=== PATIENT | male | born 1950 | race Caucasian/White ===

== ENCOUNTER 2016-09-11 15:04 | Emergency (ER) | payer MEDICAID, OTHER ==
[~2016-09-11 15:04] MED LIST: Sodium Chloride 0.9% 1,000 ML BAG ONE
--- NOTE | 2016-09-11 15:55 | RAD ---
LEFT HIP TWO VIEWS 09/11/16 HISTORY: Fall. Left hip injury. FINDINGS: Oblique fracture through the femoral neck is present with overriding of fragments and varus angulati on. Mild osteoarthritic changes are also apparent. IMPRESSION: Left hip fracture. POS: [facility]
--- NOTE | 2016-09-11 16:23 | RAD ---
LEFT KNEE FOUR VIEWS 09/11/16 HISTORY: Fall. Left knee injury. FINDINGS: There is mild joint space narrowing of the medial compartment with mild tricompartmental osteophytos is. No acute fracture or dislocation apparent. No fluid distention of the suprapatellar bursa. IMPRESSION: Mild osteoarthritic changes left knee. No acute osseous abnormalities are demonstrated. POS: [facility]
--- NOTE | 2016-09-11 16:24 | RAD ---
LEFT ANKLE THREE VIEWS 09/11/16 HISTORY: Fall. Left ankle injury. FINDINGS: Ankle mortise is intact. Truncation of the lower lateral margin of the tibia is similar in appearanc e to the prior study. No acute fracture or dislocation are visible. IMPRESSION: No acute osseous abnormalities are demonstrated. POS: [facility]
[2016-09-11] MEDS ORDERED: Ketorolac Tromethamine 30 MG/ML VIAL ONE (16:36)
[2016-09-11] MEDS ORDERED: Ondansetron HCl/PF 4 MG/2 ML Vial ONE (16:36)
[2016-09-11 16:56] LABS: PTT 27.9 SEC (22.9-36.1)
[2016-09-11 17:05] LABS: ALT (SGPT) 9 U/L (8-55); AST (SGOT) 19 U/L (5-34); Albumin 3.4 g/dL (3.4-4.8); Alkaline Phosphatase 130 U/L (40-150); Anion Gap 15 mmol/L (10-20); BUN (Urea Nitrogen) 7 mg/dL (8.4-25.7); Bilirubin, Total 1.5 mg/dL (0.2-1.2); CK (CPK) 304 U/L (30-200); Calc. Creatinine Clearance 0 mL/min (70-130); Calcium 8.5 mg/dL (7.8-10.44); Carbon Dioxide 27 mmol/L (23-31); Chloride 98 mmol/L (98-107); Estimated GFR-MDRD Greater than 90; Globulin 2.9 g/dL (2.4-3.5); Glucose 102 mg/dL (80-115); Potassium 3.7 mmol/L (3.5-5.1); Protein, Total 6.3 g/dL (5.8-8.1); Sodium 136 mmol/L (136-145)
[2016-09-11 17:06] LABS: Hemoglobin 13.3 g/dL (14.0-18.0); Mean Corpuscular HGB CONC 33.6 g/dL (32.0-36.0); Mean Corpuscular Hemoglobin 31.6 pg (27.0-31.0); Mean Corpuscular Volume 94.1 fl (80.0-94.0); Mean Platelet Volume 6.4 fL (7.4-10.4); Platelet Count 261 thou/uL (130-400); RBC Distribution Width 13.8 % (11.5-14.5); White Blood Cell (WBC) Count 13.8 thou/uL (4.8-10.8)
--- NOTE | 2016-09-11 17:06 | RAD ---
PORTABLE AP CHEST X-RAY 09/11/16 HISTORY: Preoperative evaluation. COMPARISON: 07/25/13. There has been interval development of a cavitary lesion seen within the right lung apex with adjace nt linear and parenchymal opacities present. The findings may be related to atypical infections proc ess. Calcified left hilar lymph nodes are seen with calcified granuloma in the left mid lung zone. T he left lung remains clear. The cardiac silhouette and pulmonary vasculature are within normal limit s. Remote right sided rib fractures again seen. IMPRESSION: Interval development of cavitary lesion in the right lung apex with adjacent increased parenchymal o pacity and/or pleural thickening which may be related to infectious process, an atypical infectious process is a possibility. CT scan thorax is suggested for further evaluation. POS: [facility]
[2016-09-11 17:07] LABS: Band 6 % (5-11); Lymphocytes 14 % (21-51); Monocytes 5 % (0-10)
[2016-09-11 17:12] LABS: CKMB 4.5 ng/mL (0-6.6); Troponin I 0.012 ng/mL (< 0.028)
== END 2016-09-11 16:57 | disposition short-term general hospital (02) ==
LOC: MADERS 15:04
DX: S72.002A Fracture of unspecified part of neck of left femur, initial encounter for closed fracture (principal); I10 Essential (primary) hypertension; W19.XXXA Unspecified fall, initial encounter
CPT/HCPCS: 36415; 51702; 71010; 80053; 82550; 82553; 83880; 84484; 85025; 85610; 85730; 93005; 96374; 96375; G0390; J1885; J2270; J2405; J7050

== ENCOUNTER 2017-06-09 14:00 | Outpatient (CLI) | payer MEDICARE, OTHER ==
--- NOTE | 2017-06-09 15:33 | RAD ---
CERVICAL SPINE SERIES THREE VIEWS: 06/09/17 HISTORY: Neck pain. Unable to hold head straight. COMPARISON: 07/25/13 study. FINDINGS: Marked arthritic changes of the spine are seen. there is pronounced disc narrowing at C4-5 and C5-6. Mild disc narrowing at C2-3. Minimal anterolisthesis of C3 on C4 is similar to the previous examinati on. No soft tissue swelling. There is a scoliotic curvature to the neck. The upper curvature in the cervical region is convexed to the right. IMPRESSION: 1. Arthritic changes of the cervical spine, overall stable exam. 2. Parenchymal and pleural scarring in the right upper lobe stable as compared to a chest x-ray of 02/04/17. POS: [facility]
[2017-06-09 22:25] LABS: Folate (Folic Acid) 15.3 ng/mL (7.0-31.4)
== END 2017-06-09 14:01 | disposition home or self-care (01) ==
LOC: MADLABBHPM 14:00
PROVIDERS: ATTEND Family Medicine
DX: M54.2 Cervicalgia (principal); D50.9 Iron deficiency anemia, unspecified; E53.8 Deficiency of other specified B group vitamins; J98.4 Other disorders of lung; M46.92 Unspecified inflammatory spondylopathy, cervical region
CPT/HCPCS: 36415; 72040; 82607; 82746

== ENCOUNTER 2018-03-22 13:46 | Emergency (ER) | payer MEDICARE, MEDICAID ==
[2018-03-22 14:54] LABS: #Basophils 0.2 thou/uL (0.0-0.2); #Eosinphils 0.4 thou/uL (0.0-0.7); #Lymphocytes 4.1 thou/uL (1.20-3.40); #Monocytes 0.6 thou/uL (0.11-0.59); #Neutrophils 3.9 thou/uL (1.40-6.50); %Basophils 1.7 % (0.0-1.0); %Eosinophils 4.2 % (0.0-10.0); %Lymphocytes 44.8 % (21.0-51.0); %Monocytes 6.9 % (0.0-10.0); %Neutrophils 42.4 % (42.0-75.0); Hemoglobin 13.7 g/dL (14.0-18.0); Mean Corpuscular HGB CONC 31.9 g/dL (32.0-36.0); Mean Corpuscular Volume 94.2 fL (78.0-98.0); Platelet Count 324 thou/uL (130-400); RBC Distribution Width 12.8 % (11.5-14.5); Red Blood Cell (RBC) Count 4.56 mill/uL (4.70-6.10); White Blood Cell (WBC) Count 9.2 thou/uL (4.8-10.8)
[2018-03-22 15:13] LABS: ALT (SGPT) 12 U/L (8-55); AST (SGOT) 15 U/L (5-34); Alkaline Phosphatase 83 U/L (40-150); Anion Gap 10 mmol/L (10-20); BUN (Urea Nitrogen) 14 mg/dL (8.4-25.7); Bilirubin, Total 0.2 mg/dL (0.2-1.2); Calc. Creatinine Clearance 0 mL/min (70-130); Calcium 9.3 mg/dL (7.8-10.44); Carbon Dioxide 29 mmol/L (23-31); Chloride 105 mmol/L (98-107); Estimated GFR-MDRD Greater than 90; Globulin 2.8 g/dL (2.4-3.5); Glucose 89 mg/dL (80-115); Potassium 4.3 mmol/L (3.5-5.1); Protein, Total 6.8 g/dL (5.8-8.1); Sodium 140 mmol/L (136-145)
[2018-03-22] MEDS ORDERED: Azithromycin 250 MG TAB ONE (16:05)
[2018-03-22] MEDS ORDERED: predniSONE 20 MG TAB ONE (16:05)
--- NOTE | 2018-03-22 16:33 | RAD ---
CHEST 1 VIEW: Date: 03/22/18 HISTORY: Dyspnea. COMPARISON: Radiograph dated 02/04/17. FINDINGS: Scarring right upper lobe is similar. Numerous calcified granulomas. No focal confluent air space consolidation, pneumothorax, or effusion. IMPRESSION: Chronic changes. No acute intrathoracic abnormality. POS: [facility]
== END 2018-03-22 16:10 | disposition home or self-care (01) ==
LOC: MADERS 13:46
DX: J44.1 Chronic obstructive pulmonary disease with (acute) exacerbation (principal); Z79.82 Long term (current) use of aspirin; Z79.899 Other long term (current) drug therapy
CPT/HCPCS: 36415; 71045; 80053; 83880; 84484; 85025; 93005; J7506; J7620

== ENCOUNTER 2019-07-20 16:00 | Emergency (ER) | payer MEDICARE, OTHER ==
[~2019-07-20 16:00] MED LIST changes: +Iopamidol 370 76% 100 ML VIAL ONE; -Sodium Chloride 0.9% 1,000 ML BAG ONE
[2019-07-20 16:47] LABS: Bilirubin Negative (Negative); Blood, Urine Negative (Negative); Clarity Clear (Clear); Glucose, Urine (Dipstick) Negative (Negative); Leukocyte Negative (Negative); Nitrite Negative (Negative); Protein, Urine (Dipstick) Negative (Neg-Trace); Urobilinogen 0.2 mg/dL (Less than 2)
[2019-07-20 16:55] LABS: #Basophils 0.2 thou/uL (0.0-0.2); #Eosinphils 0.4 thou/uL (0.0-0.7); #Lymphocytes 3.5 thou/uL (1.20-3.40); #Monocytes 0.8 thou/uL (0.11-0.59); #Neutrophils 6.1 thou/uL (1.40-6.50); %Basophils 1.7 % (0.0-1.0); %Eosinophils 3.2 % (0.0-10.0); %Lymphocytes 31.9 % (21.0-51.0); %Monocytes 6.9 % (0.0-10.0); %Neutrophils 56.3 % (42.0-75.0); Hemoglobin 14.6 g/dL (14.0-18.0); Mean Corpuscular HGB CONC 31.9 g/dL (32.0-36.0); Mean Corpuscular Hemoglobin 30.2 pg (27.0-31.0); Mean Corpuscular Volume 94.6 fL (78.0-98.0); Mean Platelet Volume 6.6 fL (7.4-10.4); Platelet Count 290 thou/uL (130-400); RBC Distribution Width 12.5 % (11.5-14.5); Red Blood Cell (RBC) Count 4.85 mill/uL (4.70-6.10); White Blood Cell (WBC) Count 10.9 thou/uL (4.8-10.8)
[2019-07-20 17:07] LABS: ALT (SGPT) 12 U/L (8-55); AST (SGOT) 17 U/L (5-34); Albumin 4.3 g/dL (3.4-4.8); Alkaline Phosphatase 97 U/L (40-110); Anion Gap 14 mmol/L (10-20); BUN (Urea Nitrogen) 13 mg/dL (8.4-25.7); Bilirubin, Total 0.3 mg/dL (0.2-1.2); Calc. Creatinine Clearance 0 mL/min (70-130); Calcium 9.1 mg/dL (7.8-10.44); Carbon Dioxide 25 mmol/L (23-31); Chloride 107 mmol/L (98-107); Estimated GFR-MDRD Greater than 90; Globulin 2.9 g/dL (2.4-3.5); Glucose 98 mg/dL (80-115); Lipase 16 U/L (8-78); Protein, Total 7.2 g/dL (5.8-8.1); Sodium 142 mmol/L (136-145)
--- NOTE | 2019-07-20 20:13 | CT ---
CT ABDOMEN WITH CONTRAST CT PELVIS WITH CONTRAST: DATE: 07/20/19 HISTORY: 68-year-old male with abdominal pain. Rule out appendicitis. TECHNIQUE: IV injection of iodinated contrast media: Administered. Oral contrast media: Administered. FINDINGS: The appendix, urinary bladder, bilateral kidneys, liver, spleen, adrenals, and urinary bladder, are n ormal. No abdominal aortic aneurysm. No small bowel dilation, ascites, or pneumoperitoneum. Lung base s are grossly clear. Total left hip replacement arthroplasty causes streak artifact, partially obscur ing portions of the pelvis. IMPRESSION: 1. Normal appendix. 2. No acute findings. MARTINA Bean POS: [facility]
[2019-07-20] MEDS ORDERED: Ketorolac Tromethamine 30 MG/ML VIAL ONE (20:21)
[2019-07-20] MEDS ORDERED: Ondansetron ODT 4 MG TAB ONE (20:21)
== END 2019-07-20 20:35 ==
LOC: MADERS 16:00
DX: R10.9 Unspecified abdominal pain (principal); J44.9 Chronic obstructive pulmonary disease, unspecified; N40.0 Benign prostatic hyperplasia without lower urinary tract symptoms; D64.9 Anemia, unspecified; F17.210 Nicotine dependence, cigarettes, uncomplicated; Z79.899 Other long term (current) drug therapy
CPT/HCPCS: 74177; 80053; 81003; 82150; 83690; 85025; 96372; J1885; Q0162; Q9967

== ENCOUNTER 2020-11-06 04:58 | Emergency (ER) | payer MEDICARE, MEDICAID ==
[2020-11-06 05:15] LABS: #Basophils 0.1 thou/uL (0.0-0.2); #Eosinphils 0.6 thou/uL (0.0-0.7); #Lymphocytes 2.9 thou/uL (1.20-3.40); #Monocytes 0.7 thou/uL (0.11-0.59); #Neutrophils 3.9 thou/uL (1.40-6.50); %Basophils 1.1 % (0.0-1.0); %Eosinophils 7.4 % (0.0-10.0); %Lymphocytes 35.4 % (21.0-51.0); %Monocytes 8.2 % (0.0-10.0); %Neutrophils 47.9 % (42.0-75.0); Hemoglobin 13.7 g/dL (14.0-18.0); Mean Corpuscular HGB CONC 32.4 g/dL (32.0-36.0); Mean Corpuscular Hemoglobin 30.9 pg (27.0-31.0); Mean Corpuscular Volume 95.3 fL (78.0-98.0); Mean Platelet Volume 7.4 fL (7.4-10.4); Platelet Count 293 thou/uL (130-400); RBC Distribution Width 12.6 % (11.5-14.5); Red Blood Cell (RBC) Count 4.45 mill/uL (4.70-6.10)
[2020-11-06] MEDS ORDERED: Nitroglycerin 2% Ointment 1 INCH/1 GM Packet ONE (05:34)
[2020-11-06] MEDS ORDERED: Aspirin Chewable 81 MG TAB ONE (05:34)
[2020-11-06 05:35] LABS: ALT (SGPT) 13 U/L (8-55); AST (SGOT) 16 U/L (5-34); Albumin 3.6 g/dL (3.4-4.8); Alkaline Phosphatase 88 U/L (40-110); Anion Gap 12 mmol/L (10-20); BUN (Urea Nitrogen) 12 mg/dL (8.4-25.7); Bilirubin, Total 0.5 mg/dL (0.2-1.2); CK (CPK) 101 U/L (30-200); Calc. Creatinine Clearance 0 mL/min (70-130); Calcium 8.6 mg/dL (7.8-10.44); Carbon Dioxide 25 mmol/L (23-31); Chloride 107 mmol/L (98-107); Globulin 2.6 g/dL (2.4-3.5); Glucose 105 mg/dL (80-115); Potassium 3.6 mmol/L (3.5-5.1); Protein, Total 6.2 g/dL (5.8-8.1); Sodium 140 mmol/L (136-145)
[2020-11-06] MEDS ORDERED: methylPREDNISolone Sod Succ/PF 125 MG/2 ML VIAL ONE (05:36)
[2020-11-06 05:58] LABS: SARS-CoV-2 NAA Rapid Test Not Detected (NotDetected)
[2020-11-06 08:41] LABS: Troponin I Less than 0.010 ng/mL (< 0.028)
== END 2020-11-06 10:50 | disposition short-term general hospital (02) ==
LOC: MADERS 04:58
DX: R07.2 Precordial pain (principal); R06.02 Shortness of breath; R05 Cough; Z20.822 Contact with and (suspected) exposure to COVID-19; D69.6 Thrombocytopenia, unspecified; D50.9 Iron deficiency anemia, unspecified; J44.9 Chronic obstructive pulmonary disease, unspecified; N40.0 Benign prostatic hyperplasia without lower urinary tract symptoms; F17.210 Nicotine dependence, cigarettes, uncomplicated; Z79.899 Other long term (current) drug therapy
CPT/HCPCS: 0240U; 71045; 80053; 82550; 83880; 84484 ×2; 85025; 93005; 96374; 99285; 36415; J2930

== ENCOUNTER 2020-12-21 14:57 | Emergency (ER) | payer MEDICARE, MEDICAID ==
[2020-12-21] MEDS ORDERED: Ipratropium Bromide 2.5 ml Neb ONE ×2 (15:29→16:25)
[2020-12-21] MEDS ORDERED: Albuterol Sulfate 2.5 mg/0.5 ml Neb ONE ×2 (15:29→16:25)
[2020-12-21] MEDS ORDERED: methylPREDNISolone Sod Succ/PF 125 MG/2 ML VIAL ONE (15:29)
[2020-12-21 15:47] LABS: #Basophils 0.2 thou/uL (0.0-0.2); #Eosinphils 0.6 thou/uL (0.0-0.7); #Lymphocytes 2.4 thou/uL (1.20-3.40); #Monocytes 0.8 thou/uL (0.11-0.59); #Neutrophils 4.3 thou/uL (1.40-6.50); %Basophils 2.1 % (0.0-1.0); %Eosinophils 7.3 % (0.0-10.0); %Lymphocytes 28.8 % (21.0-51.0); %Monocytes 9.8 % (0.0-10.0); %Neutrophils 51.9 % (42.0-75.0); Hemoglobin 13.8 g/dL (14.0-18.0); Mean Corpuscular HGB CONC 32.3 g/dL (32.0-36.0); Mean Corpuscular Hemoglobin 30.2 pg (27.0-31.0); Mean Corpuscular Volume 93.6 fL (78.0-98.0); Mean Platelet Volume 7.1 fL (7.4-10.4); Platelet Count 302 thou/uL (130-400); RBC Distribution Width 12.1 % (11.5-14.5); Red Blood Cell (RBC) Count 4.56 mill/uL (4.70-6.10); White Blood Cell (WBC) Count 8.3 thou/uL (4.8-10.8)
[2020-12-21 16:08] LABS: ALT (SGPT) 11 U/L (8-55); AST (SGOT) 12 U/L (5-34); Albumin 3.7 g/dL (3.4-4.8); Alkaline Phosphatase 99 U/L (40-110); Anion Gap 15 mmol/L (10-20); BUN (Urea Nitrogen) 13 mg/dL (8.4-25.7); Bilirubin, Total 0.5 mg/dL (0.2-1.2); Calc. Creatinine Clearance 0 mL/min (70-130); Calcium 8.8 mg/dL (7.8-10.44); Carbon Dioxide 22 mmol/L (23-31); Chloride 108 mmol/L (98-107); Globulin 2.6 g/dL (2.4-3.5); Glucose 109 mg/dL (80-115); Potassium 3.9 mmol/L (3.5-5.1); Protein, Total 6.3 g/dL (5.8-8.1); Sodium 141 mmol/L (136-145)
== END 2020-12-21 18:03 | disposition home or self-care (01) ==
LOC: MADERS 14:57
DX: J44.1 Chronic obstructive pulmonary disease with (acute) exacerbation (principal); F17.210 Nicotine dependence, cigarettes, uncomplicated
CPT/HCPCS: 36415; 71045; 80053; 83605; 84484; 85025; 85379; 93005; 96374; J2930; J7611

== ENCOUNTER 2021-01-18 18:51 | Emergency (ER) | payer MEDICARE, MEDICAID ==
[2021-01-18] MEDS ORDERED: methylPREDNISolone Sod Succ/PF 125 MG/2 ML VIAL ONE (18:56)
[2021-01-18 19:26] LABS: #Basophils 0.2 thou/uL (0.0-0.2); #Eosinphils 0.5 thou/uL (0.0-0.7); #Lymphocytes 2.1 thou/uL (1.20-3.40); #Monocytes 0.6 thou/uL (0.11-0.59); #Neutrophils 6.1 thou/uL (1.40-6.50); %Basophils 1.9 % (0.0-1.0); %Lymphocytes 22.4 % (21.0-51.0); %Monocytes 6.6 % (0.0-10.0); %Neutrophils 64.2 % (42.0-75.0); Hemoglobin 14.8 g/dL (14.0-18.0); Mean Corpuscular Hemoglobin 30.1 pg (27.0-31.0); Mean Corpuscular Volume 94.1 fL (78.0-98.0); Mean Platelet Volume 6.7 fL (7.4-10.4); Platelet Count 356 thou/uL (130-400); RBC Distribution Width 12.5 % (11.5-14.5); Red Blood Cell (RBC) Count 4.92 mill/uL (4.70-6.10); White Blood Cell (WBC) Count 9.5 thou/uL (4.8-10.8)
[2021-01-18 19:42] LABS: ALT (SGPT) 10 U/L (8-55); AST (SGOT) 16 U/L (5-34); Albumin 4.2 g/dL (3.4-4.8); Alkaline Phosphatase 129 U/L (40-110); Anion Gap 15 mmol/L (10-20); BUN (Urea Nitrogen) 14 mg/dL (8.4-25.7); Base Excess-Venous 2.2 mmol/L (-2.0 to 3.0); Bilirubin, Total 0.6 mg/dL (0.2-1.2); CK (CPK) 100 U/L (30-200); CO2 Tension (PvCO2) 51.6 mmHg (42.0-51.0); Calc. Creatinine Clearance 0 mL/min (70-130); Calcium, Ionized 1.19 mmol/L (1.15-1.33); Carbon Dioxide 27 mmol/L (23-31); Chloride 102 mmol/L (98-107); Chloride 104 mmol/L (98-107); Glucose 109 mg/dL (80-115); Potassium 4.3 mmol/L (3.5-5.1); Protein, Total 7.2 g/dL (5.8-8.1); Sodium 140 mmol/L (136-145); Sodium 140 mmol/L (138-145); T. Carbon Dioxide 30.6 mmol/L (22.0-28.0); vO2 Saturation-calc 64.3 % (60.0-85.0)
[2021-01-18] MEDS ORDERED: Albuterol Sulfate 2.5 mg/0.5 ml Neb ONE (19:46)
[2021-01-18] MEDS ORDERED: Ipratropium Bromide 2.5 ml Neb ONE (19:50)
[2021-01-18 20:19] LABS: SARS-CoV-2 NAA Rapid Test Not Detected (NotDetected)
== END 2021-01-18 22:35 | disposition short-term general hospital (02) ==
LOC: MADERS 18:51
DX: J44.1 Chronic obstructive pulmonary disease with (acute) exacerbation (principal); J96.00 Acute respiratory failure, unspecified whether with hypoxia or hypercapnia; R00.0 Tachycardia, unspecified; Z20.822 Contact with and (suspected) exposure to COVID-19; D69.6 Thrombocytopenia, unspecified; D50.9 Iron deficiency anemia, unspecified; F17.210 Nicotine dependence, cigarettes, uncomplicated; Z79.899 Other long term (current) drug therapy
CPT/HCPCS: 71045; 80053; 82330; 82435; 82550; 82803; 83880; 84132; 84295; 84484; 85014; 85025; 93005; U0002; 36415; 96374; J2930; J7611; J7620

== ENCOUNTER 2021-02-27 08:58 | Outpatient (CLI) | payer MEDICARE, MEDICAID ==
[2021-02-27 09:37] LABS: CKMB 2.2 ng/mL (0-6.6); Troponin I Less than 0.010 ng/mL (< 0.028)
== END 2021-02-27 08:59 | disposition home or self-care (01) ==
LOC: MADLAB 08:58 → MADRAD 08:59
PROVIDERS: ATTEND Family Medicine
DX: R07.89 Other chest pain (principal)
CPT/HCPCS: 36415; 71046; 82553; 84484; 93005; 93010

== ENCOUNTER 2021-04-19 00:06 | Emergency (ER) | payer MEDICARE, MEDICAID ==
[2021-04-19] MEDS ORDERED: Iopamidol 370 76% 125 ML VIAL FS ONE (00:07)
[2021-04-19] MEDS ORDERED: Sodium Chloride 0.9% 100 ML BAG FS ONE (00:07)
[2021-04-19] MEDS ORDERED: methylPREDNISolone Sod Succ/PF 125 MG/2 ML VIAL ONE (01:00)
[2021-04-19] MEDS ORDERED: cefTRIAXone\\ROCEPHIN 1 GM VIAL ONE (01:00)
[2021-04-19] MEDS ORDERED: Sodium Chloride 0.9% 100 ML ONE (01:00)
[2021-04-19 01:12] LABS: #Basophils 0.2 thou/uL (0.0-0.2); #Eosinphils 0.7 thou/uL (0.0-0.7); #Monocytes 0.6 thou/uL (0.11-0.59); #Neutrophils 6.4 thou/uL (1.40-6.50); %Basophils 1.7 % (0.0-1.0); %Eosinophils 7.4 % (0.0-10.0); %Lymphocytes 20.5 % (21.0-51.0); %Monocytes 5.5 % (0.0-10.0); Mean Corpuscular HGB CONC 32.6 g/dL (32.0-36.0); Mean Corpuscular Hemoglobin 29.8 pg (27.0-31.0); Mean Corpuscular Volume 91.3 fL (78.0-98.0); Mean Platelet Volume 6.2 fL (7.4-10.4); Platelet Count 391 thou/uL (130-400); RBC Distribution Width 12.5 % (11.5-14.5); Red Blood Cell (RBC) Count 4.68 mill/uL (4.70-6.10); White Blood Cell (WBC) Count 9.9 thou/uL (4.8-10.8)
[2021-04-19 01:29] LABS: ALT (SGPT) 13 U/L (8-55); AST (SGOT) 18 U/L (5-34); Albumin 4.1 g/dL (3.4-4.8); Alkaline Phosphatase 99 U/L (40-110); Anion Gap 17 mmol/L (10-20); BUN (Urea Nitrogen) 18 mg/dL (8.4-25.7); Calc. Creatinine Clearance 0 mL/min (70-130); Calcium 9.1 mg/dL (7.8-10.44); Carbon Dioxide 25 mmol/L (23-31); Chloride 105 mmol/L (98-107); Globulin 2.7 g/dL (2.4-3.5); Glucose 101 mg/dL (80-115); Potassium 3.8 mmol/L (3.5-5.1); Protein, Total 6.8 g/dL (5.8-8.1); Sodium 143 mmol/L (136-145)
[2021-04-19 01:32] LABS: Bilirubin, Total 0.4 mg/dL (0.2-1.2)
[2021-04-19] MEDS ORDERED: Doxycycline 100 MG CAP ONE (04:23)
== END 2021-04-19 05:05 | disposition home or self-care (01) ==
LOC: MADERS 00:06
DX: J44.1 Chronic obstructive pulmonary disease with (acute) exacerbation (principal); D64.9 Anemia, unspecified; Z87.891 Personal history of nicotine dependence
CPT/HCPCS: 71275; 80053; 83880; 84484; 85025; 93005; 96365; 96375; J0696; J2930; J3490; J7620; Q9967

== ENCOUNTER 2022-05-31 08:11 | Emergency (ER) | payer MEDICARE, OTHER ==
[2022-05-31] MEDS ORDERED: Ipratropium/Albuterol 3 ML NEB ONE (08:19)
[2022-05-31] MEDS ORDERED: methylPREDNISolone Sod Succ/PF 125 MG/2 ML VIAL ONE (08:28)
[2022-05-31 08:31] LABS: #Basophils 0.1 thou/uL (0.0-0.2); #Eosinphils 0.6 thou/uL (0.0-0.7); #Lymphocytes 1.7 thou/uL (1.20-3.40); #Monocytes 0.6 thou/uL (0.11-0.59); #Neutrophils 3.5 thou/uL (1.40-6.50); %Basophils 1.4 % (0.0-1.0); %Eosinophils 9.9 % (0.0-10.0); %Lymphocytes 25.4 % (21.0-51.0); %Monocytes 9.7 % (0.0-10.0); %Neutrophils 53.6 % (42.0-75.0); Hemoglobin 13.4 g/dL (14.0-18.0); Mean Corpuscular HGB CONC 33.1 g/dL (32.0-36.0); Mean Corpuscular Hemoglobin 30.1 pg (27.0-31.0); Mean Platelet Volume 5.6 fL (7.4-10.4); Platelet Count 300 10x3/uL (130-400); RBC Distribution Width 12.5 % (11.5-14.5); Red Blood Cell (RBC) Count 4.45 mill/uL (4.70-6.10); White Blood Cell (WBC) Count 6.5 10x3/uL (4.8-10.8)
[2022-05-31 08:50] LABS: ALT (SGPT) 11 U/L (8-55); AST (SGOT) 15 U/L (5-34); Albumin 4.2 g/dL (3.4-4.8); Alkaline Phosphatase 108 U/L (40-110); Anion Gap 13 mmol/L (10-20); BUN (Urea Nitrogen) 11 mg/dL (8.4-25.7); Bilirubin, Total 0.3 mg/dL (0.2-1.2); Calc. Creatinine Clearance 0 mL/min (70-130); Carbon Dioxide 28 mmol/L (23-31); Chloride 105 mmol/L (98-107); Estimated GFR 92; Globulin 2.7 g/dL (2.4-3.5); Glucose 60 mg/dL (83-110); Magnesium 2.7 mg/dL (1.6-2.6); Potassium 3.8 mmol/L (3.5-5.1); Protein, Total 6.9 g/dL (5.8-8.1); Sodium 142 mmol/L (136-145)
[2022-05-31] MEDS ORDERED: Azithromycin 250 MG TAB ONE (09:05)
== END 2022-05-31 09:23 | disposition home or self-care (01) ==
LOC: MADERS 08:11
DX: U07.1 COVID-19 (principal); J44.1 Chronic obstructive pulmonary disease with (acute) exacerbation; J06.9 Acute upper respiratory infection, unspecified; C34.90 Malignant neoplasm of unspecified part of unspecified bronchus or lung; D50.9 Iron deficiency anemia, unspecified; D64.9 Anemia, unspecified; Z79.899 Other long term (current) drug therapy; Z87.891 Personal history of nicotine dependence
CPT/HCPCS: 71045; 80053; 83735; 83880; 84484; 85025; 87804 ×2; 93005; U0003; U0005; 96374; J2930; J7620

== ENCOUNTER 2022-06-27 18:37 | Emergency (ER) | payer MEDICARE, OTHER ==
[2022-06-27] MEDS ORDERED: Guaifenesin DM 100-10/5 ML UDCUP ONE ×2 (19:11→19:13)
[2022-06-27] MEDS ORDERED: Ipratropium/Albuterol 3 ML NEB ONE (19:40)
== END 2022-06-27 19:58 ==
LOC: MADERS 18:37
DX: R05.9 Cough, unspecified (principal); C34.90 Malignant neoplasm of unspecified part of unspecified bronchus or lung; D50.9 Iron deficiency anemia, unspecified; D64.9 Anemia, unspecified; J44.9 Chronic obstructive pulmonary disease, unspecified; F17.210 Nicotine dependence, cigarettes, uncomplicated; Z20.822 Contact with and (suspected) exposure to COVID-19; Z79.899 Other long term (current) drug therapy
CPT/HCPCS: 71045; 87804; J7620; U0003; U0005

== ENCOUNTER 2022-07-20 12:19 | Outpatient (CLI) | payer MEDICARE, OTHER | END 2022-07-20 12:20 | disposition home or self-care (01) | LOC: MADRAD 12:19 | PROVIDERS: ATTEND Family Medicine | DX: R05.3 Chronic cough (principal) | CPT/HCPCS: 71046 ==

== ENCOUNTER 2022-11-28 20:41 | Emergency (ER) | payer MEDICARE, MEDICAID ==
[2022-11-28 21:26] LABS: Bilirubin Negative (Negative); Blood, Urine Negative (Negative); Clarity Clear (Clear); Glucose, Urine (Dipstick) Negative (Negative); Ketone, Urine Negative (Negative); Leukocyte Negative (Negative); Nitrite Negative (Negative); Protein, Urine (Dipstick) Negative (Neg-Trace)
[2022-11-28 21:33] LABS: Bacteria/HPF None Seen HPF (None Seen); CAUTI Indications for Culture Pelvic or flank pain; Mucous/LPF Rare LPF (<2+); RBC/HPF None Seen HPF (0-3); Squamous Epithelial 0-3 HPF (0-3); WBC/HPF None Seen HPF (0-3)
[2022-11-28 21:35] LABS: Urine Culture Reflex No No
[2022-11-28 22:05] LABS: Hematocrit 43.4 % (42.0-52.0); Mean Corpuscular HGB CONC 32.3 g/dL (32.0-36.0); Mean Corpuscular Volume 93.1 fl (78.0-98.0); Mean Platelet Volume 7.2 fL (7.4-10.4); Platelet Count 306 10x3/uL (130-400); RBC Distribution Width 14.9 % (11.5-14.5); Red Blood Cell (RBC) Count 4.66 mill/uL (4.70-6.10); White Blood Cell (WBC) Count 9.5 10x3/uL (4.8-10.8)
[2022-11-28 22:06] LABS: Band 5 % (5-11); Chloride 103 mmol/L (98-107); Lymphocytes 18 % (21-51); MDiff Complete? YES; Monocytes 3 % (0-10); Neutrophil 73 % (42-75); Platelet Adequacy Comment Appears Adequate; Sodium 139 mmol/L (136-145)
[2022-11-28 22:07] LABS: ALT (SGPT) 7 U/L (8-55); AST (SGOT) 13 U/L (5-34); Albumin 4.2 g/dL (3.4-4.8); Alkaline Phosphatase 119 U/L (40-110); Anion Gap 13 mmol/L (10-20); BUN (Urea Nitrogen) 16 mg/dL (8.4-25.7); Bilirubin, Total 0.4 mg/dL (0.2-1.2); Calc. Creatinine Clearance 0 mL/min (70-130); Calcium 9.4 mg/dL (7.8-10.44); Carbon Dioxide 27 mmol/L (23-31); Estimated GFR 92; Globulin 2.8 g/dL (2.4-3.5); Glucose 83 mg/dL (83-110); Lipase 11 U/L (8-78)
== END 2022-11-28 22:45 | disposition home or self-care (01) ==
LOC: MADERS 20:41
DX: R10.31 Right lower quadrant pain (principal); R82.998 Other abnormal findings in urine; J44.9 Chronic obstructive pulmonary disease, unspecified; F17.210 Nicotine dependence, cigarettes, uncomplicated; Z79.899 Other long term (current) drug therapy
CPT/HCPCS: 80053; 81001; 83690; 85025; 93005

== ENCOUNTER 2023-02-21 10:08 | Outpatient (CLI) | payer MEDICARE, OTHER | END 2023-02-21 10:09 | disposition home or self-care (01) | LOC: MADRAD 10:08 | PROVIDERS: ATTEND Internal Medicine Rheumatology | DX: M47.812 Spondylosis without myelopathy or radiculopathy, cervical region (principal) | CPT/HCPCS: 72040 ==

== ENCOUNTER 2023-05-23 10:50 | Outpatient (CLI) | payer MEDICARE, OTHER | END 2023-05-23 10:51 | disposition home or self-care (01) | LOC: MADRAD 10:50 | PROVIDERS: ATTEND Family Medicine | DX: J44.89 Other specified chronic obstructive pulmonary disease (principal); R91.8 Other nonspecific abnormal finding of lung field | CPT/HCPCS: 71046 ==